=== PATIENT | male | born 1990 | race Caucasian/White ===

== ENCOUNTER 2021-11-16 08:16 | Emergency (ER) | payer MEDICAID, OTHER ==
[~2021-11-16] VITALS: Ht 172.7 cm; Wt 64.0 kg
[~2021-11-16 08:16] MED LIST: NO HOME MEDS
[2021-11-16] MEDS ORDERED: ondansetron/PF 4mg/2ml inj IV ONE (08:35)
[2021-11-16] MEDS ORDERED: normal saline 1000ML IV soln IVB ONE (08:35)
[2021-11-16] MEDS ORDERED: morphine 4 MG/ML inj SYRINge IV ONE (08:35)
[2021-11-16 09:19] LABS: CLARITY,URINE CLEAR (Clear); COLOR,URINE YELLOW (Yellow); GLUCOSE, URINE NEGATIVE (Neg); KETONES,URINE NEGATIVE (Neg); LEUKOCYTE ESTERASE ,URINE NEGATIVE (Neg); NITRITES, URINE NEGATIVE (Neg); OCCULT BLOOD,URINE NEGATIVE (Neg); PROTEIN,URINE NEGATIVE (Neg); UROBILINOGEN,URINE 0.2 E.U/dL (0.2-1.0)
[2021-11-16 09:23] LABS: UA COLLECTION TYPE CLN CATCH MIDSTREAM
[2021-11-16 09:55] LABS: BASOPHILS % (AUTO) 0.6 % (0-1); EOSINOPHILS % (AUTO) 0.3 % (0-6); HEMATOCRIT 44.8 % (42.0-52.0); HEMOGLOBIN 15.4 g/dl (14.0-17.9); LYMPHOCYTES % (AUTO) 20.5 % (21-51); MEAN CORPUSCULAR HEMOGLOBIN 29.8 PG (27.0-31.0); MEAN CORPUSCULAR HGB CONC 34.4 g/dL (33.0-36.5); MEAN CORPUSCULAR VOLUME 86.7 FL (78-98); MEAN PLATELET VOLUME 7.7 FL (7.4-10.4); MONOCYTES # (AUTO) 0.3 X10'3 (0-0.9); MONOCYTES % (AUTO) 5.5 % (2-12); NEUTROPHILS # (AUTO) 3.6 X10'3 (1.8-7.7); NEUTROPHILS % (AUTO) 73.1 % (42-75); PLATELET COUNT 284 X10'3 (140-440); RED BLOOD COUNT 5.17 X10'6 (4.70-6.10); RED CELL DISTRIBUTION WIDTH 13.4 % (11.5-14.5); WHITE BLOOD COUNT 4.9 X10'3 (4.5-11.0)
[2021-11-16 10:02] LABS: ALANINE AMINOTRANSFERASE 41 U/L (12-78); ALBUMIN 4.1 G/DL (3.4-5.0); ALBUMIN/GLOBULIN RATIO 1.1 (1.1-1.5); ALKALINE PHOSPHATASE 66 IU/L (46-116); ANION GAP 6 (8-16); ASPARTATE AMINO TRANSFERASE 19 U/L (10-37); BILIRUBIN,TOTAL 0.4 MG/DL (0.1-1.0); BLOOD UREA NITROGEN 10 MG/DL (7-18); BUN/CREATININE RATIO 10.9 (5.4-32.0); CHLORIDE 102 MMOL/L (99-107); CREATININE 0.92 MG/DL (0.60-1.10); GLUCOSE 91 MG/DL (70-104); LIPASE 58 U/L (73-393); POTASSIUM 3.9 MMOL/L (3.5-5.1); SODIUM 138 MMOL/L (135-145); TOTAL CARBON DIOXIDE 30.2 MMOL/L (24-32); TOTAL PROTEIN 7.8 G/DL (6.4-8.2); eGFR > 90 ML/MIN
[2021-11-16] MEDS ORDERED: iohexol 300mg/ml 100ml inj. ONE (10:18)
--- NOTE | 2021-11-16 10:22 | NUR ---
Pt left ED for CT abd in wheelchair, no distress noted.
[2021-11-16] MEDS ORDERED: ketorolac tromethamine 15mg/ml inj. IV ONE (11:50)
[2021-11-16] MEDS ORDERED: ringers solution, lactated 1000ml IV soln IV ONE (11:50)
[2021-11-16] MEDS ORDERED: magnesium citrate 296ml oral solution PO ONE (12:45)
[2021-11-16] MEDS ORDERED: magnesium hydroxide 30ml (MOM) UD suspension PO ONE (12:55)
[2021-11-16] MEDS ORDERED: polyethylene glycol 3350 17gm powd pack PO ONE (12:55)
[2021-11-16 14:54] VITALS: BP 125/73
== END 2021-11-16 14:58 | disposition home or self-care (01) ==
LOC: ER 08:16
DX: R10.31 Right lower quadrant pain (principal); K59.00 Constipation, unspecified; Z98.890 Other specified postprocedural states
CPT/HCPCS: 36415; 74177; 80053; 81003; 83690; 85025; 96361; 96374; 96375; 99285; J1885; J2270; J2405; J3490; J7030; J7120; Q9967; 74176